=== PATIENT | female | born 1965 | race Caucasian/White ===

== ENCOUNTER 2016-08-31 10:40 | Emergency (ER) | payer OTHER ==
[~2016-08-31] VITALS: Ht 154.9 cm; Wt 60.0 kg
[2016-08-31 10:42] VITALS: BP 80/46; PULSE 84; RESP 16; TEMP 98.2; O2SAT 98
[2016-08-31 11:51] VITALS: BP 132/76; PULSE 69; RESP 18; TEMP 98.5; O2SAT 95
[2016-08-31 11:52] LABS: AUTOMATED NEUTROPHIL # 3.9 TH/MM3 (1.8-7.7); BASOPHIL # 0.1 TH/MM3 (0-0.2); EOSINOPHIL # 0.1 TH/MM3 (0-0.4); EOSINOPHIL % 1.3 % (0.0-4.0); HEMATOCRIT 45.2 % (35.0-46.0); HEMO FLAGS DIFF FINAL; LYMPH % 29.1 % (9.0-44.0); LYMPHOCYTE # 1.9 TH/MM3 (1.0-4.8); MEAN CELL VOLUME 95.5 FL (80.0-100.0); MEAN CORPUSCULAR HEMOGLOBIN 32.5 PG (27.0-34.0); MONO % 7.4 % (0.0-8.0); NEUT % 61.2 % (16.0-70.0); PLATELET COUNT 235 TH/MM3 (150-450); RED BLOOD COUNT 4.73 MIL/MM3 (4.00-5.30); RED CELL DISTRIBUTION WIDTH 14.3 % (11.6-17.2); WHITE BLOOD COUNT 6.4 TH/MM3 (4.0-11.0)
[2016-08-31 11:54] VITALS: BP_SYST 105; BP_SYST 75; BP_SYST 78; BP_DIAS 50; BP_DIAS 51; BP_DIAS 58; PULSE 68
[2016-08-31] MEDS ORDERED: SODIUM CHLOR 0.9% 1000 ML INJ 1,000 ML IV ONE ×2 (12:00)
--- NOTE | 2016-08-31 12:08 | PD ---
HPI Chief Complaint: Medical Clearance Time Seen by Provider: 11:31 Travel History International Travel<30 days: No Contact w/Intl Traveler<30days: No Traveled to known affect area: No History of Present Illness HPI Patient is a 51-year-old female who presents to emergency room with multiple complaints. Reports that for the past 2 days, she has had a headache, reports that she feels a pressure to her head as well as noticed a bump under her right eye. Reports that she feels dehydrated as she only had 2 bottle of water yesterday. Patient reports that her head hurts her and she feels sleepy and exhausted. Denies any fevers or chills, denies any vision changes, denies any nausea or vomiting. Patient denies any chest pain or shortness breath at this time. Patient denies any abdominal pain, no trauma to the head or neck Patient also reports that she is homeless, reports that she needs a place to stay today as thing at the [facility] but there was no availability. [facility] Past Medical History Cardiovascular Problems: Yes ?: Not Past Surgical History Hysterectomy: Yes Social History Alcohol Use: No Tobacco Use: No Substance Use: No Allergies-Medications (Allergen,Severity, Reaction): Coded Allergies: Haldol (Verified Allergy, Intermediate, 08/31/16) Oxycodone (Verified Allergy, Intermediate, 08/31/16) Review of Systems General / Constitutional: No: Fever Eyes: No: Visual changes HENT: Positive: Lightheadedness, No: Headaches Cardiovascular: No: Chest Pain or Discomfort Respiratory: No: Shortness of Breath Gastrointestinal: No: Abdominal Pain Genitourinary: No: Dysuria Musculoskeletal: No: Pain Skin: No Rash Neurologic: Positive: Headache, No: Weakness Psychiatric: No: Depression Endocrine: No: Polydipsia Hematologic/Lymphatic: No: Easy Bruising Physical Exam Narrative GENERAL: No acute distress, nontoxic SKIN: Focused skin assessment warm/dry. HEAD: Atraumatic. Normocephalic. EYES: Pupils equal and round. No scleral icterus. No injection or drainage. ENT: No nasal bleeding or discharge. Mucous membranes pink and moist. NECK: Trachea midline. No JVD. CARDIOVASCULAR: Regular rate and rhythm. No murmur appreciated. RESPIRATORY: No accessory muscle use. Clear to auscultation. Breath sounds equal bilaterally. GASTROINTESTINAL: Abdomen soft, non-tender, nondistended. Hepatic and splenic margins not palpable. MUSCULOSKELETAL: No obvious deformities. No clubbing. No cyanosis. No edema. NEUROLOGICAL: Awake and alert. No obvious cranial nerve deficits. Motor grossly within normal limits. Normal speech. Cranial nerves 2- 12 grossly intact with no neurological deficits PSYCHIATRIC: Appropriate mood and affect; insight and judgment normal. Data Data Last Documented VS Vital Signs Date Time Temp Pulse Resp B/P Pulse Ox O2 Delivery O2 Flow Rate FiO2 08/31/16 13:59 59 18 92/62 99 Room Air 08/31/16 11:51 98.5 Orders Complete Blood Count With Diff (08/31/16 11:05) Basic Metabolic Panel (Bmp) (08/31/16 11:05) Urinalysis - C+S If Indicated (08/31/16 11:05) Drug Screen, Random Urine (08/31/16 11:32) Ed Urine Pregnancytest Poc (08/31/16 11:32) Creatine Kinase (Cpk) (08/31/16 11:32) Sodium Chlor 0.9% 1000 Ml Inj (Ns 1000 M (08/31/16 12:00) Sodium Chlor 0.9% 1000 Ml Inj (Ns 1000 M (08/31/16 12:00) Chest, Single Ap (08/31/16 11:48) Ct Brain W/O Iv Contrast(Rout) (08/31/16 12:22) Electrocardiogram (08/31/16 ) Cta Thor Abd Aorta W Iv C W3d (08/31/16 13:33) Iohexol 350 Inj (Omnipaque 350 Inj) (08/31/16 16:09) Labs Laboratory Tests Test 08/31/16 08/31/16 08/31/16 11:36 11:40 11:46 White Blood Count 6.4 TH/MM3 Red Blood Count 4.73 MIL/MM3 Hemoglobin 15.4 GM/DL Hematocrit 45.2 % Mean Corpuscular Volume 95.5 FL Mean Corpuscular Hemoglobin 32.5 PG Mean Corpuscular Hemoglobin 34.0 % Concent Red Cell Distribution Width 14.3 % Platelet Count 235 TH/MM3 Mean Platelet Volume 8.7 FL Neutrophils (%) (Auto) 61.2 % Lymphocytes (%) (Auto) 29.1 % Monocytes (%) (Auto) 7.4 % Eosinophils (%) (Auto) 1.3 % Basophils (%) (Auto) 1.0 % Neutrophils # (Auto) 3.9 TH/MM3 Lymphocytes # (Auto) 1.9 TH/MM3 Monocytes # (Auto) 0.5 TH/MM3 Eosinophils # (Auto) 0.1 TH/MM3 Basophils # (Auto) 0.1 TH/MM3 CBC Comment DIFF FINAL Differential Comment Urine Color YELLOW Urine Turbidity CLEAR Urine pH 6.5 Urine Specific [place] 1.022 Urine Protein NEG mg/dL Urine Glucose (UA) NEG mg/dL Urine Ketones NEG mg/dL Urine Occult Blood NEG Urine Nitrite NEG Urine Bilirubin NEG Urine Urobilinogen 4.0 MG/DL Urine Leukocyte Esterase NEG Urine RBC LESS THAN 1 /hpf Urine WBC 1 /hpf Urine Squamous Epithelial <1 /hpf Cells Urine Hyaline Casts 1 /lpf Urine Mucus FEW /lpf Microscopic Urinalysis Comment CULT NOT INDICATED Urine Opiates Screen NEG Urine Barbiturates Screen NEG Urine Amphetamines Screen NEG Urine Benzodiazepines Screen NEG Urine Cocaine Screen NEG Urine Cannabinoids Screen POS Sodium Level 144 MEQ/L Potassium Level 4.1 MEQ/L Chloride Level 112 MEQ/L Carbon Dioxide Level 26.5 MEQ/L Anion Gap 6 MEQ/L Blood Urea Nitrogen 12 MG/DL Creatinine 0.89 MG/DL Estimat Glomerular Filtration 67 ML/MIN Rate Random Glucose 90 MG/DL Calcium Level 9.1 MG/DL Total Creatine Kinase 61 U/L [facility] Medical Decision Making Medical Screen Exam Complete: Yes Emergency Medical Condition: Yes Interpretation(s) EKG at 1231: NSR at 60bpm, qt/qtc: 431/433, t wave inversion II, III, V5-V6 Vital Signs Date Time Temp Pulse Resp B/P Pulse Ox O2 Delivery O2 Flow Rate FiO2 08/31/16 11:54 68 75/50 105/51 78/58 08/31/16 11:51 68 18 08/31/16 11:51 98.5 69 18 132/76 95 Room Air 08/31/16 10:42 98.2 84 16 80/46 98 Differential Diagnosis Differential includes migraine headache, cephalgia, dehydration, electrolyte abnormality Narrative Course Patient is a 51-year-old female who presents to emergency with complaints of headache. Patient reports that she has increased pressure to the back of her head and eyes the past 2 days, patient with no fevers or chills, no trauma. Patient with normal neurological exam with no neurological deficits. Reports that she has had decreased oral intake over the past few days, plan to obtain CT of the head, will obtain blood work, will give IV fluids as patient does appear dehydrated. Laboratory Tests Test 08/31/16 08/31/16 08/31/16 11:36 11:40 11:46 White Blood Count 6.4 TH/MM3 (4.0-11.0) Red Blood Count 4.73 MIL/MM3 (4.00-5.30) Hemoglobin 15.4 GM/DL (11.6-15.3) Hematocrit 45.2 % (35.0-46.0) Mean Corpuscular Volume 95.5 FL (80.0-100.0) Mean Corpuscular Hemoglobin 32.5 PG (27.0-34.0) Mean Corpuscular Hemoglobin 34.0 % Concent (32.0-36.0) Red Cell Distribution Width 14.3 % (11.6-17.2) Platelet Count 235 TH/MM3 (150-450) Mean Platelet Volume 8.7 FL (7.0-11.0) Neutrophils (%) (Auto) 61.2 % (16.0-70.0) Lymphocytes (%) (Auto) 29.1 % (9.0-44.0) Monocytes (%) (Auto) 7.4 % (0.0-8.0) Eosinophils (%) (Auto) 1.3 % (0.0-4.0) Basophils (%) (Auto) 1.0 % (0.0-2.0) Neutrophils # (Auto) 3.9 TH/MM3 (1.8-7.7) Lymphocytes # (Auto) 1.9 TH/MM3 (1.0-4.8) Monocytes # (Auto) 0.5 TH/MM3 (0-0.9) Eosinophils # (Auto) 0.1 TH/MM3 (0-0.4) Basophils # (Auto) 0.1 TH/MM3 (0-0.2) CBC Comment DIFF FINAL Differential Comment Urine Color YELLOW (YELLW/STRAW) Urine Turbidity CLEAR (CLEAR) Urine pH 6.5 (5.0-8.5) Urine Specific [place] 1.022 (1.002-1.035) Urine Protein NEG mg/dL (NEG-TRACE) Urine Glucose (UA) NEG mg/dL (NEG) Urine Ketones NEG mg/dL (NEG) Urine Occult Blood NEG (NEG) Urine Nitrite NEG (NEG) Urine Bilirubin NEG (NEG) Urine Urobilinogen 4.0 MG/DL (LESS THAN 2.0) Urine Leukocyte Esterase NEG (NEG) Urine RBC LESS THAN 1 /hpf (0-3) Urine WBC 1 /hpf (0-5) Urine Squamous Epithelial <1 /hpf (0-5) Cells Urine Hyaline Casts 1 /lpf (RARE) Urine Mucus FEW /lpf (OCC) Microscopic Urinalysis Comment CULT NOT INDICATED Sodium Level 144 MEQ/L (136-145) Potassium Level 4.1 MEQ/L (3.5-5.1) Chloride Level 112 MEQ/L (98-107) Carbon Dioxide Level 26.5 MEQ/L (21.0-32.0) Anion Gap 6 MEQ/L (5-15) Blood Urea Nitrogen 12 MG/DL (7-18) Creatinine 0.89 MG/DL (0.50-1.00) Estimat Glomerular Filtration 67 ML/MIN (>89) Rate Random Glucose 90 MG/DL (74-106) Calcium Level 9.1 MG/DL (8.5-10.1) Last Impressions Head CT 08/31/16 1222 Signed Impressions: Service Date/Time: Wednesday, August 31, 2016 12:44 - CONCLUSION: No acute intracranial disease. Elpidio Sandhu MD Chest X-Ray 08/31/16 1148 Signed Impressions: Service Date/Time: Wednesday, August 31, 2016 11:49 - CONCLUSION: No acute disease. Elpidio Sandhu MD CTA ordered to rule out aortic dissection as patient c/o of a headedness and dizziness and patient had abnormal vital signs. Patient now requesting to leave AGAINST MEDICAL ADVICE. AMA: The risks of leaving against medical advice without further evaluation treatment were discussed with the patient. These risks include cardiac dysfunction, cardiac dysrhythmia, possible heart attack, possible stroke or . The patient indicated understanding of these risks and appeared to have the capacity to make this decision. Vital Signs Date Time Temp Pulse Resp B/P Pulse Ox O2 Delivery O2 Flow Rate FiO2 08/31/16 13:59 59 18 92/62 99 Room Air 08/31/16 12:34 57 18 123/68 96 Room Air 08/31/16 11:54 68 75/50 105/51 78/58 08/31/16 11:51 68 18 08/31/16 11:51 98.5 69 18 132/76 95 Room Air 08/31/16 10:42 98.2 84 16 80/46 98 Patient understands that she could return to the emergency with any time for reevaluation of her symptoms. Patient left prior to CTA being resulted. She understands that she may return to ER at any time should she require re-evaluation Diagnosis Primary Impression: AMA Additional Impressions: Headache Qualified Code: R51 - Nonintractable headache, unspecified chronicity pattern , unspecified headache type Dizziness Patient Instructions: General Instructions Additional Instructions: You may return to the emergency with any time should you consent to further medical treatment Please stop with your primary care doctor as soon as possible You may return to the emergency room any time for reevaluation of your symptoms Disposition: 07 AGAINST MEDICAL ADVICE Condition: Serious Zoë Flood DO Aug 31, 2016 12:08
[2016-08-31 12:16] LABS: BLOOD, URINE NEG (NEG); COMMENT (UR) CULT NOT INDICATED; CULTURE IF INDICATED CULT NOT INDICATED; GLUCOSE,URINE NEG (NEG); HYALINE CAST, URINE 1 /lpf (RARE); KETONE, URINE NEG (NEG); MUCUS URINE FEW /lpf (OCC); NITRITE,URINE NEG (NEG); PH, URINE 6.5 (5.0-8.5); SQUAMOUS EPITHELIAL CELL URINE <1 /hpf (0-5); URINE COLOR YELLOW (YELLW/STRAW)
--- NOTE | 2016-08-31 12:29 | RADRPT ---
EXAM DATE/TIME: 08/31/2016 11:49 [facility] COMPARISON: No previous studies available for comparison. INDICATIONS : Shortness of breath, dizziness, and weakness. MEDICAL HISTORY : None. SURGICAL HISTORY : Heart stent. ENCOUNTER: Initial ACUITY: 1 day PAIN SCORE: 0/10 LOCATION: Bilateral chest FINDINGS: A single view of the chest demonstrates the lungs to be symmetrically aerated without evidence of mas s, infiltrate or effusion. The cardiomediastinal contours are unremarkable. Osseous structures are intact. CONCLUSION: No acute disease. Elpidio Sandhu MD on August 31, 2016 at 12:27 Board Certified Radiologist. This report was verified electronically.
[2016-08-31 12:34] VITALS: BP 123/68; PULSE 57; RESP 18; O2SAT 96
[2016-08-31 12:41] LABS: BICARBONATE 26.5 MEQ/L (21.0-32.0); POTASSIUM 4.1 MEQ/L (3.5-5.1)
--- NOTE | 2016-08-31 13:03 | RADRPT ---
EXAM DATE/TIME: 08/31/2016 12:44 [facility] COMPARISON: No previous studies available for comparison. INDICATIONS : Cephalgia. RADIATION DOSE: 56.35 CTDIvol (mGy) MEDICAL HISTORY : Cardiovascular disease. SURGICAL HISTORY : None. ENCOUNTER: Initial ACUITY: 1 day PAIN SCALE: 5/10 LOCATION: Bilateral cranial TECHNIQUE: Multiple contiguous axial images were obtained of the head. Using automated exposure control and adj ustment of the mA and/or kV according to patient size, radiation dose was kept as low as reasonably a chievable to obtain optimal diagnostic quality images. DICOM format image data is available electro nically for review and comparison. FINDINGS: CEREBRUM: The ventricles are normal for age. No evidence of midline shift, mass lesion, hemorrhage or acute in farction. No extra-axial fluid collections are seen. POSTERIOR FOSSA: The cerebellum and brainstem are intact. The 4th ventricle is midline. The cerebellopontine angle i s unremarkable. EXTRACRANIAL: The visualized portion of the orbits is intact. SKULL: The calvaria is intact. No evidence of skull fracture. CONCLUSION: No acute intracranial disease. Elpidio Sandhu MD on August 31, 2016 at 13:01 Board Certified Radiologist. This report was verified electronically.
[2016-08-31 13:59] VITALS: BP 92/62; PULSE 59; RESP 18; O2SAT 99
[2016-08-31] MEDS ORDERED: IOHEXOL 350 MG/ML 10 ML VIAL (for RAD DIAG) IV ONE (16:09)
--- NOTE | 2016-08-31 16:30 | RADRPT ---
EXAM DATE/TIME: 08/31/2016 15:37 [facility] COMPARISON: No previous studies available for comparison. INDICATIONS : Evaluate for aortic dissection. IV CONTRAST: 75 cc Omnipaque 350 (iohexol) IV RADIATION DOSE: 25.40 CTDIvol (mGy) MEDICAL HISTORY : Cardiovascular disease. SURGICAL HISTORY : Hysterectomy. ENCOUNTER: Initial ACUITY: 1 day PAIN SCALE: 2/10 LOCATION: Bilateral cranial TECHNIQUE: Volumetric scanning was performed using a multi-row detector CT scanner. The data was post processed with a variety of visualization algorithms including full volume maximum intensity projection, multi -planar sliding thin slab reformation, curved planar reformation, and surface rendering techniques. Using automated exposure control and adjustment of the mA and/or kV according to patient size, radiat ion dose was kept as low as reasonably achievable to obtain optimal diagnostic quality images. DICOM format image data is available electronically for review and comparison. FINDINGS: LUNGS: There is no consolidation or pneumothorax. No concerning pulmonary nodule is visualized. No pleural fluid is present. 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 MEDIASTINUM: No abnormally enlarged lymph nodes by CT criteria. No axillary or hilar abnormalities are identified. ABDOMEN: The liver and spleen are free of focal defects. The gallbladder and pancreas demonstrate no abnormali ty. The adrenal glands are normal. The kidneys demonstrate no evidence of solid renal mass or hydrone phrosis. No free fluid or abdominal masses are identified. No para-aortic adenopathy is seen. PELVIS: No evidence of free fluid or pelvic mass. No abnormally enlarged inguinal or retroperitoneal lymph no roxy are present. The bladder is unremarkable. THORACIC AORTA: The thoracic aortic root is normal with no evidence of aneurysm or dissection. Short segment occlusio n of the left subclavian artery. Mild narrowing of the origin of the left common carotid artery. ABDOMINAL AORTA: The aorta is normal in caliber without aneurysm or dissection. The renal arteries are patent bilater ally. The proximal celiac and superior mesenteric arteries are patent and normal in diameter. PELVIC VESSELS: The left internal iliac and external iliac vessels are patent without aneurysm or stenosis. There is occlusion of the right common iliac artery with reconstitution of the distal right common iliac arter y right before branching. CONCLUSION: 1. 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 2. No aneurysm or dissection. 3. There is small segment occlusion left subclavian artery. 4. Mild narrowing at the origin of the left common carotid artery. Elpidio F. Tocci, MD on August 31, 2016 at 16:23 Board Certified Radiologist. This report was verified electronically.
[2016-08-31 16:31] LABS: AMPHETAMINE, URINE NEG (NEG); BARBITURATES, URINE NEG (NEG); COCAINE, URINE NEG (NEG)
--- NOTE | 2016-08-31 17:33 | EKG ---
Date Performed: 08/31/2016 Time Performed: 12:31:08 PTAGE: 51 years EKG: Sinus rhythm WITH OCCASIONAL VENTRICULAR PREMATURE COMPLEXES POSSIBLE RIGHT VENTRICULAR CONDUCTION DELAY MODERATE T-WAVE ABNORMALITY, CONSIDER INFERIOR ISCHEMIA ABNORMAL ECG NO PREVIOUS TRACING DOCTOR: Angelito Nelson Interpretating Date/Time 08/31/2016 17:33:07
== END 2016-08-31 16:56 | disposition left against medical advice (07) ==
LOC: NEPD 10:40
DX: R51 Headache (principal); R42 Dizziness and giddiness
CPT/HCPCS: 70450; 71010; 71275; 74174; 80048; 80307; 81001; 82550; 84703; 85025; 93005; 99285; J7030; Q9967

== ENCOUNTER 2016-11-15 13:12 | Inpatient (IN) | payer MEDICAID, OTHER ==
[~2016-11-15] VITALS: Ht 160 cm; Wt 51.2 kg
[2016-11-15 13:25] VITALS: BP 111/58; PULSE 78; RESP 16; TEMP 98.7; O2SAT 99
[2016-11-15 13:49] LABS: AUTOMATED NEUTROPHIL # 4.9 TH/MM3 (1.8-7.7); BASOPHIL # 0.1 TH/MM3 (0-0.2); BASOPHIL % 1.1 % (0.0-2.0); EOSINOPHIL # 0.1 TH/MM3 (0-0.4); EOSINOPHIL % 1.8 % (0.0-4.0); HEMATOCRIT 43.4 % (35.0-46.0); HEMO FLAGS DIFF FINAL; LYMPH % 25.9 % (9.0-44.0); MEAN CELL VOLUME 97.5 FL (80.0-100.0); MEAN CORPUSCULAR HEMOGLOBIN 32.7 PG (27.0-34.0); MEAN CORPUSCULAR HGB CONC 33.6 % (32.0-36.0); MONO % 6.8 % (0.0-8.0); NEUT % 64.4 % (16.0-70.0); PLATELET COUNT 245 TH/MM3 (150-450); RED BLOOD COUNT 4.45 MIL/MM3 (4.00-5.30); RED CELL DISTRIBUTION WIDTH 14.2 % (11.6-17.2); WHITE BLOOD COUNT 7.7 TH/MM3 (4.0-11.0)
[2016-11-15 14:10] LABS: ALT (GPT) 18 U/L (10-53); ANION GAP 5 MEQ/L (5-15); AST (GOT) 11 U/L (15-37); BICARBONATE 23.5 MEQ/L (21.0-32.0); BLOOD UREA NITROGEN 13 MG/DL (7-18); CHLORIDE 110 MEQ/L (98-107); GLOMERULAR FILTRATION RATE 77 ML/MIN (>89); POTASSIUM 4.3 MEQ/L (3.5-5.1); SODIUM (NA) 138 MEQ/L (136-145)
[2016-11-15 14:12] LABS: ALKALINE PHOSPHATASE 79 U/L (45-117); TOTAL BILIRUBIN ADULT 0.2 MG/DL (0.2-1.0)
[2016-11-15 14:18] LABS: ALCOHOL LESS THAN 3 MG/DL (0-5)
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
[2016-11-15 15:16] VITALS: BP 91/51; PULSE 55; RESP 16; O2SAT 100
[2016-11-15 17:58] VITALS: BP 76/58; PULSE 60; RESP 16; O2SAT 100
[2016-11-15 22:07] VITALS: BP 130/62; PULSE 60; RESP 18; O2SAT 96
[2016-11-16] MEDS ORDERED: OLANZapine IM 10 MG VIAL IM ONE (00:45)
[2016-11-16 02:01] VITALS: BP 121/67; PULSE 56; RESP 18; O2SAT 96
[2016-11-16] MEDS ORDERED: diphenhydrAMINE HCL 50 MG/ML VIAL IM ONE (06:00)
[2016-11-16] MEDS ORDERED: LORazepam 2 MG/ML VIAL IM ONE (06:00)
[2016-11-16 06:12] VITALS: BP 92/51; PULSE 60; RESP 17; O2SAT 98
[2016-11-16] MEDS ORDERED: ACETAMINOPHEN 325 MG TAB PO ONE (09:00)
[2016-11-16 10:59] VITALS: BP 121/56; PULSE 60; RESP 17; TEMP 98.4; O2SAT 96
[2016-11-16] MEDS ORDERED: LORazepam 2 MG/ML VIAL IM PRN (12:00)
[2016-11-16] MEDS ORDERED: MAGNESIUM HYDROXIDE SUSP 30 ML CUP PO PRN (12:00)
[2016-11-16] MEDS ORDERED: ALUMINUM/MAGNESIUM/SIMETH 30 ML CUP PO PRN (12:00)
--- NOTE | 2016-11-16 12:05 | HHI.HP ---
Provisional Diagnosis Admission Date [place]. Schizophrenia, chronic paranoid type Certification of Person's Competence To Provide Express and Informed Consent I have personally examined Olu Bashir , a person being served at [facility] on, Nov 16, 2016 12:03. Express and informed consent means consent voluntarily given in writing, by a competent person, after sufficient explanation and disclosure of the subject matter involved to enable the person to make a knowing and willful decision without any element of force, fraud, deceit, duress, or other form of constraint or coercion. This person is 18 years of age or older, is not now known to be incompetent to consent to treatment with a guardian advocate, and does not have a health care surrogate or proxy currently making medical treatment decisions. I have found this person to be one of the following: [x] Competent to provide express and informed consent, as defined above, for voluntary admission to this facility and is competent to provide express and informed consent for treatment. He/she has the consistent capacity to make well reasoned, willful, and knowing decisions concerning his or her medical or mental health treatment. The person fully and consistently understands the purpose of the admission for examination/placement and is fully capable of personally exercising all rights assured [place] Incompetent to provide express and informed consent to voluntary admission, and this is incompetent to provide express and informed consent to treatment. The person must be transferred to involuntary status and a petition for a guardian advocate filed with the Circuit Court. [] Refusing to provide express and informed consent to voluntary admission but is competent to provide express and informed consent for treatment. The person must be discharged or transferred to involuntary status. Form shall be completed within 24 hours of a person's arrival at the receiving facility and filed in the clinical record of each person: 1. Admitted on a voluntary basis 2. Permitted to provide express and informed consent to his/her own treatment 3. Allowed to transfer from involuntary to voluntary status 4. Prior to permitting a person to consent to his or her own treatment after having been previously found incompetent to consent to treatment. History of Present Illness Capacity: Has Capacity HPI 51-year-old female brought in under a Castañeda act for reportedly taking her clothes off in a [employer] restaurant. When she was questioned by police, she became highly agitated and combative. According to the police shift commander she was making a disturbance and demonstrating aggressiveness. Patient is an uncooperative historian. She does allow that she has a history of schizophrenia and that she takes 6 mg of Risperdal per day. She also reports taking Depakote. She has thrown her food and cups in her room and blames the staff, stating staff members did this. She is feeling persecuted by the healthcare professionals attempting to care for her. She wants to ask this physician of series of questions but does not wish to answer questions. She has been noncompliant with her medicines for weeks. She does not have a positive alcohol or drug screen at this time. However she is verbally threatening to the emergency department staff. She states we are plotting to harm her. Review of Systems Except as stated in HPI: all other systems reviewed are Neg Past Psych History Psychological trauma history Denied Violence risk - others (6 mos) High Violence risk - self (6 mos) Moderate to high Substance Abuse History Drugs/Alcohol past 12 months Denied Past Family Social History Coded Allergies: haloperidol (Unverified Allergy, Intermediate, 10/08/16) oxycodone (Unverified Allergy, Intermediate, 10/08/16) Unable to Obtain Active Prescriptions or Reported Meds Current Medications Medications (Trade) Dose Ordered Sig/Lam Route Start Time Stop Time Status Last Admin (Ativan) 1 mg Q6H PRN PO 11/16/16 12:00 UNV (Ativan Inj) 1 mg Q6H PRN IM 11/16/16 12:00 UNV (Tylenol) 650 mg Q4H PRN PO 11/16/16 12:00 UNV (Milk Of Magnesia Liq) 30 ml DAILY PRN PO 11/16/16 12:00 UNV (Mag-Al Plus Susp Liq) 30 ml Q6H PRN PO 11/16/16 12:00 UNV (Desyrel) 50 mg HS PRN PO 11/16/16 12:00 UNV (Abilify) 2 mg HS PO 11/16/16 21:00 UNV Family History Unknown Social History Patient is currently homeless. She denies family support. She is not employed. She denies alcohol and substance abuse. Patient's Strengths (min. 2) Verbal and has access to healthcare. Physical Exam GENERAL: SKIN: Warm and dry. HEAD: Normocephalic. EYES: No scleral icterus. No injection or drainage. NECK: Supple, trachea midline. No JVD or lymphadenopathy. CARDIOVASCULAR: Regular rate and rhythm without murmurs, gallops, or rubs. RESPIRATORY: Breath sounds equal bilaterally. No accessory muscle use. GASTROINTESTINAL: Abdomen soft, non-tender, nondistended. MUSCULOSKELETAL: No cyanosis, or edema. BACK: Nontender without obvious deformity. No CVA tenderness. Vital Signs Vital Signs Date Time Temp Pulse Resp B/P (MAP) Pulse Ox O2 Delivery O2 Flow Rate FiO2 11/16/16 10:59 98.4 60 17 121/56 (77) 96 11/16/16 02:01 Room Air Lab Results Test 11/15/16 13:35 White Blood Count 7.7 TH/MM3 Red Blood Count 4.45 MIL/MM3 Hemoglobin 14.6 GM/DL Hematocrit 43.4 % Mean Corpuscular Volume 97.5 FL Mean Corpuscular Hemoglobin 32.7 PG Mean Corpuscular Hemoglobin Concent 33.6 % Red Cell Distribution Width 14.2 % Platelet Count 245 TH/MM3 Mean Platelet Volume 8.2 FL Neutrophils (%) (Auto) 64.4 % Lymphocytes (%) (Auto) 25.9 % Monocytes (%) (Auto) 6.8 % Eosinophils (%) (Auto) 1.8 % Basophils (%) (Auto) 1.1 % Neutrophils # (Auto) 4.9 TH/MM3 Lymphocytes # (Auto) 2.0 TH/MM3 Monocytes # (Auto) 0.5 TH/MM3 Eosinophils # (Auto) 0.1 TH/MM3 Basophils # (Auto) 0.1 TH/MM3 CBC Comment DIFF FINAL Differential Comment Blood Urea Nitrogen 13 MG/DL Creatinine 0.79 MG/DL Random Glucose 85 MG/DL Total Protein 7.5 GM/DL Albumin 3.8 GM/DL Calcium Level 9.0 MG/DL Alkaline Phosphatase 79 U/L Aspartate Amino Transf (AST/SGOT) 11 U/L Alanine Aminotransferase (ALT/SGPT) 18 U/L Total Bilirubin 0.2 MG/DL Sodium Level 138 MEQ/L Potassium Level 4.3 MEQ/L Chloride Level 110 MEQ/L Carbon Dioxide Level 23.5 MEQ/L Anion Gap 5 MEQ/L Estimat Glomerular Filtration Rate 77 ML/MIN Ethyl Alcohol Level LESS THAN 3 MG/DL Mental Status Examination Speech: Rapid Orientation: x3 Memory: Unremarkable Thought Process: Loose Association Thought Content: Bizarre thinking, Paranoid Hallucination Type: None Attention and Concentration: Abnormal Suicidal Ideation: No Previous Suicide Attempts: No Homicidal Ideation: No Previous Homicide Attempts: No Insight: Poor Judgment: Unrealistic Affect: Irritable, Oppositional Affect if Inappropriate: Labile Mood: Oppositional, Irritable Motor Activity: Normal gait Assessment & Plan Problem List: (1) Schizophrenia, paranoid, chronic ICD Codes: F20.0 - Paranoid schizophrenia Assessment & Plan Estimated LOS: days this is a 51-year-old female with self reported history of schizophrenia, noncompliant with medicines, Castañeda acted for taking her clothes off in public and agitated/aggressive behavior. Patient remains agitated, throwing things in her room, blaming staff, alleging she is being persecuted by staff and she is uncooperative. For this reason she is being admitted for evaluation and treatment. This physician has restarted the patient on Risperdal 3 mg in the emergency room. I have also ordered a CBC and comprehensive metabolic profile to determine if any infectious process or metabolic process is causing or contributing to her psychosis and agitation. We will also check her thyroid stimulating hormone, vitamin B-12 level and vitamin D level to determine if deficiencies in these areas are causing or contributing to her agitation and psychosis. We will obtain a EKG to assess her cardiac conduction status due to the possibility of it being altered by her psychotropic medicines. This physician spoke with the patient's nurse regarding her recent agitation and will ask case management to become involved for further information gathering and dispositional planning. Frank Arauz MD Nov 16, 2016 12:05
[2016-11-16] MEDS: risperiDONE 3 MG TAB PO SCH (12:50)
[2016-11-16] MEDS: LORazepam 1 MG TAB PO PRN ×2 (12:51→20:28)
[2016-11-16 13:06] VITALS: BP 126/74; PULSE 63; RESP 18; TEMP 98.2; O2SAT 98
[2016-11-16] MEDS ORDERED: ARIPiprazole 2 MG TAB PO SCH (21:00)
[2016-11-17 05:48] VITALS: BP 151/62; PULSE 76; RESP 16; TEMP 98.4; O2SAT 96
[2016-11-17] MEDS: risperiDONE 3 MG TAB PO SCH (08:00)
[2016-11-17] MEDS: ACETAMINOPHEN 325 MG TAB PO PRN (08:01)
[2016-11-17] MEDS: LORazepam 1 MG TAB PO PRN ×3 (08:57→22:32)
[2016-11-17 10:25] LABS: BASOPHIL # 0.1 TH/MM3 (0-0.2); BASOPHIL % 2.2 % (0.0-2.0); EOSINOPHIL # 0.1 TH/MM3 (0-0.4); EOSINOPHIL % 2.1 % (0.0-4.0); HEMATOCRIT 43.9 % (35.0-46.0); HEMO FLAGS DIFF FINAL; LYMPH % 25.1 % (9.0-44.0); LYMPHOCYTE # 1.6 TH/MM3 (1.0-4.8); MEAN CELL VOLUME 96.4 FL (80.0-100.0); MEAN CORPUSCULAR HEMOGLOBIN 32.5 PG (27.0-34.0); MEAN CORPUSCULAR HGB CONC 33.7 % (32.0-36.0); MONO % 5.7 % (0.0-8.0); NEUT % 64.9 % (16.0-70.0); PLATELET COUNT 214 TH/MM3 (150-450); RED BLOOD COUNT 4.55 MIL/MM3 (4.00-5.30); RED CELL DISTRIBUTION WIDTH 14.2 % (11.6-17.2); WHITE BLOOD COUNT 6.2 TH/MM3 (4.0-11.0)
[2016-11-17 10:46] LABS: ANION GAP 8 MEQ/L (5-15); AST (GOT) 7 U/L (15-37); BICARBONATE 24.5 MEQ/L (21.0-32.0); BLOOD UREA NITROGEN 15 MG/DL (7-18); CHLORIDE 108 MEQ/L (98-107); GLOMERULAR FILTRATION RATE 98 ML/MIN (>89); POTASSIUM 4.6 MEQ/L (3.5-5.1); SODIUM (NA) 140 MEQ/L (136-145)
[2016-11-17 11:12] LABS: HEMOGLOBIN A1a 1.3 %; HEMOGLOBIN A1b 0.9 %; HEMOGLOBIN Ao 84.2 %; HEMOGLOBIN F 1.1 %; HEMOGLOBIN LA1C 2.3 %; HEMOGLOBIN P3 3.8 %
[2016-11-17 11:14] LABS: ALKALINE PHOSPHATASE 76 U/L (45-117); ALT (GPT) 13 U/L (10-53); HDL CHOLESTEROL 55.4 MG/DL (40.0-60.0); LDL CHOLESTEROL 101 MG/DL (0-99); TOTAL BILIRUBIN ADULT 0.2 MG/DL (0.2-1.0)
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
[2016-11-17 17:54] VITALS: BP 133/75; PULSE 83; RESP 16; TEMP 98.7; O2SAT 96
[2016-11-17] MEDS: traZODone HCL 50 MG TAB PO PRN (21:22)
[2016-11-18 06:01] VITALS: BP 99/62; PULSE 80; RESP 16; TEMP 97.6; O2SAT 97
[2016-11-18] MEDS: risperiDONE 3 MG TAB PO SCH (08:59)
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
[2016-11-18] MEDS: DIVALPROEX SODIUM E.R. 500 MG TAB PO SCH (10:00)
[2016-11-18 16:50] VITALS: BP 97/68; PULSE 62; RESP 18; TEMP 97.5; O2SAT 100
[2016-11-18] MEDS ORDERED: risperiDONE 1 MG TAB PO SCH (21:00)
[2016-11-18] MEDS: ACETAMINOPHEN 325 MG TAB PO PRN (21:17)
[2016-11-18] MEDS: LORazepam 1 MG TAB PO PRN (21:17)
[2016-11-18] MEDS: traZODone HCL 50 MG TAB PO PRN (21:17)
[2016-11-19 06:10] VITALS: BP 114/57; PULSE 64; RESP 18; TEMP 97.8; O2SAT 94
[2016-11-19] MEDS: risperiDONE 3 MG TAB PO SCH (08:51)
[2016-11-19] MEDS: DIVALPROEX SODIUM E.R. 500 MG TAB PO SCH (08:51)
--- NOTE | 2016-11-19 11:21 | HHI.PYPN ---
Subjective Remarks Patient seen and examined with counselor. Chart reviewed. Case discussed in treatment team. On my examination today, the patient remains pleasantly delusional. She says that she sometimes feels that she is not from earth but is the creator of Earth. She also says that she sometimes interacts with "little green men." She denies any SI or HI. She denies side effects from medications and is agreeable to further titration of her Risperdal. No physical complaints. Hopeful for discharge within the next few days. Review of Systems ROS Limitations: Psychotic, Poor Historian Except as stated in HPI: all other systems reviewed are Neg Objective Alert: Yes [place]: Person, Place, Date Mood: Calm Affect: Appropriate (remains appropriate) Memory Intact: Comment (fair) Hallucinations: Other (denies AVH) Delusions: Yes Delusion Type: Paranoid (bizarre) Suicidal: Ideation (no SI) Homicidal: Ideation (no HI) Insight/Judgment Poor Remarks Thought process linear within delusional system. Grooming and hygiene fair, and there is no evidence of any self-care deficit as a consequence of the patient's psychosis. Speech within normal limits for rate, tone and volume. Labs Labs reviewed. Vitals/IOs Vital Signs Date Time Temp Pulse Resp B/P (MAP) Pulse Ox O2 Delivery O2 Flow Rate FiO2 11/19/16 06:10 97.8 64 18 114/57 (76) 94 11/16/16 02:01 Room Air Assessment & Plan Problem List: (1) Schizophrenia, paranoid, chronic ICD Codes: F20.0 - Paranoid schizophrenia Assessment & Plan Titrate Risperdal to 5 mg total daily dose. Continue Depakote as ordered. Continue to monitor on the inpatient unit. Continue other medications and care as ordered. Justification for Cont. Inpt. Impairment in reality construction. Medication changes in process. Discharge Planning Patient would certainly benefit from additional inpatient days for stabilization and further medication adjustment, but there has been no evidence of any suicidality, homicidality or self-care deficit so far to substantiate a petition for involuntary psychiatric hospitalization should she insist on leaving. Request HC Surrog/Guard Advoc?: No Ck Chris MD Nov 19, 2016 11:21
[2016-11-19 17:04] VITALS: BP 105/56; PULSE 82; RESP 18; TEMP 97.7; O2SAT 97
[2016-11-19] MEDS ORDERED: risperiDONE 1 MG TAB PO SCH (21:00)
[2016-11-19] MEDS: ACETAMINOPHEN 325 MG TAB PO PRN (21:08)
[2016-11-20] MEDS: ACETAMINOPHEN 325 MG TAB PO PRN (05:18)
[2016-11-20 06:08] VITALS: BP 126/70; PULSE 60; RESP 18; TEMP 97.5; O2SAT 99
[2016-11-20] MEDS: DIVALPROEX SODIUM E.R. 500 MG TAB PO SCH (08:50)
[2016-11-20] MEDS: risperiDONE 3 MG TAB PO SCH (08:50)
[2016-11-20] MEDS ORDERED: DEPA500T3 PO (09:45)
[2016-11-20] MEDS ORDERED: RISP1 PO (09:45)
[2016-11-20] MEDS ORDERED: RISP3 PO (09:45)
--- NOTE | 2016-11-20 09:46 | HHI.DS ---
Psychiatry Discharge Summary Inpatient Psychiatric care?: Yes Advance Directive: No Reason Not Provided: PSYCHOTIC Mental Health AdvanceDirective: No Health Care Proxy: No Admission Admission Date Nov 16, 2016 at 11:59 Admission Diagnosis: (1) Schizophrenia, paranoid, chronic ICD Code: F20.0 - Paranoid schizophrenia Brief History 51-year-old female brought in under a Castañeda act for reportedly taking her clothes off in a [employer] restaurant. When she was questioned by police, she became highly agitated and combative. According to the police sergeant she was making a disturbance and demonstrating aggressiveness. Patient is an uncooperative historian. She does allow that she has a history of schizophrenia and that she takes 6 mg of Risperdal per day. She also reports taking Depakote. She has thrown her food and cups in her room and blames the staff, stating staff members did this. She is feeling persecuted by the healthcare professionals attempting to care for her. She wants to ask this physician of series of questions but does not wish to answer questions. She has been noncompliant with her medicines for weeks. She does not have a positive alcohol or drug screen at this time. However she is verbally threatening to the emergency department staff. She states we are plotting to harm her. Tobacco Use In Past 30 Days: 5 or More Cigarettes/Day Alcohol Use: Never Hospital Course Patient was admitted to a locked, inpatient psychiatric unit. Appropriate precautions were in place throughout patient's hospital stay. Patient was seen and examined on the unit by psychiatry and also visited by counselor. Psychotropic medications were adjusted. Patient tolerated medications well without side effects. Patient had improvement in presenting psychiatric symptomatology during the course of her hospital stay. There was no evidence of any suicidality or homicidality on the inpatient unit. Patient's behavior improved with the benefit of psychopharmacologic treatment. On the day of discharge: Patient seen and examined with counselor and nurse. Chart reviewed. Case discussed with counselor and nurse. Per nursing staff, no behavioral issues overnight. On my examination today, the patient is in good spirits. She is requesting discharge from the inpatient psychiatric unit today. She denies any suicidal or homicidal ideation, intent or plan on direct questioning and contracts for safety. I can elicit no depressive or hypomanic/manic symptoms at this time. She denies any audiovisual hallucinations, and I can elicit no delusional material, even when I ask about the delusional material that she has previously verbalized. She is future oriented. She denies side effects from medications. Psychoeducation regarding medication regimen provided. I have recommended long-acting injectable antipsychotic but the patient declines. I have likewise offered to titrate the patient's Risperdal to reported previous outpatient dose of 3 mg twice daily on discharge, but she declines this as well. No physical complaints. Weighing the acute, chronic, and protective factors and based on the available evidence, I rolled seat trimmer to a reasonable degree of medical certainty that the patient is at low imminent risk of harm to self or others from a mental illness as defined under the Castañeda act, and her level of function is adequate for outpatient care. The patient does not meet criteria for involuntary psychiatric hospitalization. I have recommended that she remain on the unit voluntarily for further observation, but she has declined. Given that I have no basis to retain this patient involuntarily, I will order her discharge today with psychiatric follow-up as arranged by counselor. Patient is also to follow-up with primary care. She will require a Depakote level on an outpatient basis, ordered on discharge. I have counseled the patient regarding warning signs for need to return to the psychiatric emergency room as part of a general safety plan. Results Blood Pressure 126 / 70 Vital Signs Date Time Temp Pulse Resp B/P (MAP) Pulse Ox O2 Delivery O2 Flow Rate FiO2 11/20/16 06:08 97.5 60 18 126/70 (88) 99 Laboratory Tests Test 11/17/16 09:55 Basophils (%) (Auto) 2.2 % (0.0-2.0) Aspartate Amino Transf (AST/SGOT) 7 U/L (15-37) Chloride Level 108 MEQ/L (98-107) LDL Cholesterol 101 MG/DL (0-99) Laboratory Results Test 11/17/16 09:55 Cholesterol Level 182 MG/DL (120-200) HDL Cholesterol 55.4 MG/DL (40.0-60.0) Hemoglobin A1c 5.8 % (4.3-6.0) LDL Cholesterol 101 MG/DL (0-99) Triglycerides Level 126 MG/DL (42-150) Summary of Procedures None done Imaging None done Pending results at discharge: No Medications # of Antipsychotic meds at D/C: 1 Approp Antipsych med options 1 - Minimum of three failed multiple trials of monotherapy. 2 - Documented plan to taper to monotherapy due to previous use of multiple meds OR cross-taper in progress at D/C. 3 - Documentation of augmentation of Clozapine. 4 - Justification other than those listed in allowable values 1-3, document here : Discharge Discharge Date: Nov 20, 2016 Discharge Diagnosis: (1) Schizophrenia, paranoid, chronic Diagnosis: Principal (improved versus admission) ICD Code: F20.0 - Paranoid schizophrenia Mental Status Exam at Disch Patient is casually dressed. Patient is well groomed. Patient is awake and alert and oriented person in hospital at least. No evidence of delirium. No motor abnormalities appreciated. Speech is within normal limits for rate, tone , volume. Language and fund of knowledge average. Focus and concentration intact. Memory grossly intact on clinical exam. Mood is good. Affect is full and reactive. Thought process linear. No delusional material elicited. Denies audiovisual hallucinations. Denies suicidal or homicidal ideation, intent, or plan and contracts for safety. Insight and judgment seem fair to poor at best. Pt Condition on Discharge: Stable Discharge Disposition: Discharge Home Discharge Instructions Diet Instructions: As Tolerated, No Restrictions Activities you can perform: Weight Bearing as Alejandra Scheduled Appointment: as per counselor's notes New Orders: AMMONIA - 2-3 Days DEPAKENE - 2-3 Days New Medications: Divalproex ER (Depakote ER) 500 Mg Ellen 500 MG PO DAILY for Mental Health for 15 Days, #15 TAB 1 Refill Risperidone (Risperdal) 1 Mg Tab 2 MG PO HS for Mental Health for 15 Days, TAB 1 Refill Risperidone (Risperdal) 3 Mg Tab 3 MG PO DAILY for Mental Health for 15 Days, #15 TAB 1 Refill Discharge Time <= 30 minutes Discharge/Advance Care Plan Health Problems: (1) Schizophrenia, paranoid, chronic Goals to promote your health * To prevent worsening of your condition and complications * To maintain your health at the optimal level Directions to meet your goals Take your medications as prescribed Follow your dietary instruction Follow activity as directed Keep your appointments as scheduled Take your immunizations and boosters as scheduled If your symptoms worsen call your PCP, if no PCP go to Urgent Care Center or Emergency Room For 16/09 questions related to your inpatient stay or results of tests pending at discharge, please contact Dr. Ck Chris at Smoking is Dangerous to Your Health. Avoid second hand smoking Ck Chris MD Nov 20, 2016 09:46
== END 2016-11-20 12:15 | disposition home or self-care (01) | DRG 885 ==
LOC: NEPJ 13:12 → NEDA 11-16 11:59 → H270 11-16 12:28
PROVIDERS: ADMIT Psychiatry & Neurology Psychiatry; ATTEND Psychiatry & Neurology Psychiatry
DX: F20.0 Paranoid schizophrenia (principal); Z91.14 Patient's other noncompliance with medication regimen; F17.290 Nicotine dependence, other tobacco product, uncomplicated; Z59.0 Homelessness
CPT/HCPCS: 80053; 80061; 80307; 82306; 82607; 83036; 84443; 85025; 96372; J1200; J2060

== ENCOUNTER 2017-02-01 15:25 | Inpatient (IN) | payer MEDICAID ==
[~2017-02-01] VITALS: Ht 154.9 cm; Wt 53.1 kg
[~2017-02-01 15:25] MED LIST: DEPA500T3 PO; RISP1 PO; RISP3 PO
[2017-02-01 15:30] VITALS: BP 163/87; PULSE 92; RESP 22; TEMP 97.6; O2SAT 98
--- NOTE | 2017-02-01 16:14 | PD ---
HPI Chief Complaint: Psychiatric Symptoms Time Seen by Provider: 16:05 Travel History International Travel<30 days: No Contact w/Intl Traveler<30days: No Traveled to known affect area: No History of Present Illness HPI The patient was seen and examined in the presence of the nurse. This patient presents voluntarily for psychiatric evaluation. She has history of schizophrenia. She is supposed to be on medication for that but stopped taking it. She cannot give a logical reason for why she stopped taking it. She denies alcohol or drug use. Denies intentional overdose. Denies feeling suicidal. She reports that she is hearing voices. She is homeless. She arrives with luggage in [place]. Symptoms severity is moderate. No alleviating factors. Symptoms exacerbated by her psychiatric illness PFSH Past Medical History Cardiovascular Problems: Yes Chest Pain: No Ulcer: No (unknown) Past Surgical History Abdominal Surgery: No (unknown) Hysterectomy: Yes Social History Alcohol Use: No Tobacco Use: Yes Substance Use: No Allergies-Medications (Allergen,Severity, Reaction): Coded Allergies: haloperidol (Unverified Allergy, Intermediate, 10/08/16) oxycodone (Unverified Allergy, Intermediate, 10/08/16) Reported Meds & Prescriptions Reported Meds & Active Scripts Active Risperdal (Risperidone) 3 Mg Tab 3 Mg PO DAILY 15 Days Risperdal (Risperidone) 1 Mg Tab 2 Mg PO HS 15 Days Depakote ER (Divalproex Sodium) 500 Mg Ellen 500 Mg PO DAILY 15 Days Review of Systems General / Constitutional: No: Fever Eyes: No: Visual changes HENT: No: Headaches Cardiovascular: No: Chest Pain or Discomfort Respiratory: No: Shortness of Breath Gastrointestinal: No: Abdominal Pain Genitourinary: No: Dysuria Musculoskeletal: No: Pain Skin: No Rash Neurologic: No: Weakness Psychiatric: Positive: Disorder of Thought, No: Depression Endocrine: No: Polydipsia Hematologic/Lymphatic: No: Easy Bruising Physical Exam Narrative GENERAL: Disheveled well-developed patient in no apparent distress. SKIN: Focused skin assessment reveals no rash and nodules. Skin is Warm and dry. HEAD: Atraumatic. Normocephalic. EYES: Pupils equal and round. No scleral icterus. No injection or drainage. ENT: No nasal bleeding or discharge. Mucous membranes pink and moist. NECK: Trachea midline. No JVD. CARDIOVASCULAR: Regular rate and rhythm. No murmur appreciated. RESPIRATORY: No accessory muscle use. Clear to auscultation. Breath sounds equal bilaterally. GASTROINTESTINAL: Abdomen soft, non-tender, nondistended. Hepatic and splenic margins not palpable. MUSCULOSKELETAL: No obvious deformities. No clubbing. No cyanosis. No edema. NEUROLOGICAL: Awake and alert. No obvious cranial nerve deficits. Motor grossly within normal limits. Normal speech. PSYCHIATRIC: Appropriate mood and affect; insight and judgment poor . Data Data Last Documented VS Vital Signs Date Time Temp Pulse Resp B/P (MAP) Pulse Ox O2 Delivery O2 Flow Rate FiO2 02/01/17 15:30 97.6 92 22 163/87 (112) 98 Orders Orders Complete Blood Count With Diff (02/01/17 16:10) Basic Metabolic Panel (Bmp) (02/01/17 16:10) Iv Access Insert/Monitor (02/01/17 16:10) Psych Screen (02/01/17 16:10) Drug Screen, Random Urine (02/01/17 16:10) Alcohol (Ethanol) (02/01/17 16:10) Labs Laboratory Tests Test 02/01/17 16:30 02/01/17 17:30 White Blood Count 7.8 TH/MM3 Red Blood Count 4.46 MIL/MM3 Hemoglobin 14.4 GM/DL Hematocrit 43.0 % Mean Corpuscular Volume 96.2 FL Mean Corpuscular Hemoglobin 32.3 PG Mean Corpuscular Hemoglobin Concent 33.6 % Red Cell Distribution Width 13.8 % Platelet Count 327 TH/MM3 Mean Platelet Volume 7.9 FL Neutrophils (%) (Auto) 61.6 % Lymphocytes (%) (Auto) 28.6 % Monocytes (%) (Auto) 7.3 % Eosinophils (%) (Auto) 1.9 % Basophils (%) (Auto) 0.6 % Neutrophils # (Auto) 4.8 TH/MM3 Lymphocytes # (Auto) 2.2 TH/MM3 Monocytes # (Auto) 0.6 TH/MM3 Eosinophils # (Auto) 0.1 TH/MM3 Basophils # (Auto) 0.0 TH/MM3 CBC Comment DIFF FINAL Differential Comment Blood Urea Nitrogen 10 MG/DL Creatinine 0.47 MG/DL Random Glucose 57 MG/DL Calcium Level 8.9 MG/DL Sodium Level 141 MEQ/L Potassium Level 3.9 MEQ/L Chloride Level 107 MEQ/L Carbon Dioxide Level 27.0 MEQ/L Anion Gap 7 MEQ/L Estimat Glomerular Filtration Rate 140 ML/MIN Ethyl Alcohol Level LESS THAN 3 MG/DL MDM Medical Decision Making Medical Screen Exam Complete: Yes Emergency Medical Condition: Yes Medical Record Reviewed: Yes Differential Diagnosis Schizophrenia, bipolar, depression Narrative Course I have reviewed the patient's electronic medical record. Patient was hospitalized here October 2016 for schizophrenia I've ordered medical clearance workup IV placed CBC is normal Metabolic profile is normal Alcohol is negative Tox screen is running in the lab at this time but still pending, unlikely to change actual management I've ordered psychiatric screening as she presents specifically asking for that. Patient is is medically stable as can be made. Disposition will be per psychiatry after screening evaluation. Diagnosis Primary Impression: Schizophrenia, paranoid, chronic Kirk Clarke MD Feb 01, 2017 16:14
[2017-02-01 17:07] LABS: AUTOMATED NEUTROPHIL # 4.8 TH/MM3 (1.8-7.7); BASOPHIL % 0.6 % (0.0-2.0); EOSINOPHIL # 0.1 TH/MM3 (0-0.4); EOSINOPHIL % 1.9 % (0.0-4.0); HEMO FLAGS DIFF FINAL; LYMPH % 28.6 % (9.0-44.0); LYMPHOCYTE # 2.2 TH/MM3 (1.0-4.8); MEAN CELL VOLUME 96.2 FL (80.0-100.0); MEAN CORPUSCULAR HEMOGLOBIN 32.3 PG (27.0-34.0); MEAN CORPUSCULAR HGB CONC 33.6 % (32.0-36.0); MONO % 7.3 % (0.0-8.0); NEUT % 61.6 % (16.0-70.0); PLATELET COUNT 327 TH/MM3 (150-450); RED BLOOD COUNT 4.46 MIL/MM3 (4.00-5.30); RED CELL DISTRIBUTION WIDTH 13.8 % (11.6-17.2); WHITE BLOOD COUNT 7.8 TH/MM3 (4.0-11.0)
[2017-02-01 17:39] LABS: ANION GAP 7 MEQ/L (5-15); BLOOD UREA NITROGEN 10 MG/DL (7-18); CHLORIDE 107 MEQ/L (98-107); GLOMERULAR FILTRATION RATE 140 ML/MIN (>89); POTASSIUM 3.9 MEQ/L (3.5-5.1); SODIUM (NA) 141 MEQ/L (136-145)
[2017-02-01 17:41] LABS: ALCOHOL LESS THAN 3 MG/DL (0-5)
[2017-02-01 18:50] VITALS: BP 117/54; PULSE 59; RESP 16; TEMP 98.1; O2SAT 97
--- NOTE | 2017-02-01 20:59 | PD ---
History of Present Illness Chief Complaint: Psychiatric Symptoms Time Seen by Provider: 20:45 Travel History International Travel<30 Days: No Contact w/Intl Traveler<30days: No Known affected area: No Legal Status Legal Status: Voluntary History of Present Illness: History of Present Illness HPI The patient is a 52-year-old female with history of schizophrenia who presents to the ED on a voluntary status requesting a psychiatric evaluation.She reports that she is sick and that she is hearing voices. She has been noncompliant with her psychiatric medications since her discharge from psychiatric inpatient unit on November 20. Patient is currently homeless and states that she is unable to take care of herself including unable to take her medication due to her being homeless. Electronic medical record is reviewed. Most recent psychiatric hospitalization was on November 16, 2016. Patient was admitted under a Castañeda act after she took her clothes off at a [employer] and caused a disturbance. Current toxicology is negative for all substances. Patient is seen in [facility] [place]. She was sleep and and when she was awakened for evaluation she becomes easily agitated. She once again reiterated that she was hearing voices, that the voices were present all his time, that she is unable to identify what the voices tell her. When patient is asked further questions she becomes verbally abusive towards teletypewriter operator and she states "you are just trying to mess me up" and that I should just go ahead and finish and kill her. Patient also reports that she has not been able to take care of herself while out in the community. [facility] Past Medical History Cardiovascular Problems: Yes Chest Pain: No Ulcer: No (unknown) Past Surgical History Abdominal Surgery: No (unknown) Hysterectomy: Yes Psychiatric History Psychiatric History Hx Psychiatric Treatment: Most recent hospitalization at [facility] November 16 2 November 20, 2016. History of Inpatient Treatment: Yes Guns or firearms in home: No Social History Patient is homeless. Unable to obtain any other information due to her lack of cooperation. Hx Alcohol Use: No Hx Tobacco Use: Yes Hx Substance Use: No Substance Use Type: Nicotine/Cigarettes Other Substances Used: Cigars Hx of Substance Use Treatment: No Family Psychiatric History Unable to obtain Allergies-Medications (Allergen,Severity, Reaction): Coded Allergies: haloperidol (Unverified Allergy, Intermediate, 10/08/16) oxycodone (Unverified Allergy, Intermediate, 10/08/16) Reported Meds & Prescriptions Reported Meds & Active Scripts Active Risperdal (Risperidone) 3 Mg Tab 3 Mg PO DAILY 15 Days Risperdal (Risperidone) 1 Mg Tab 2 Mg PO HS 15 Days Depakote ER (Divalproex Sodium) 500 Mg Ellen 500 Mg PO DAILY 15 Days Review of Systems ROS Limitations: Uncooperative Mental Status Examination Appearance: Dirty Consciousness: Alert Orientation: x4 Motor Activity: Normal gait Speech: Unremarkable Language: Adequate Fund of Knowledge: Adequate (unable to evaluate) Attention and Concentration: Adequate Memory: Unremarkable (unable to assess) Mood: Angry Affect: Appropriate Thought Process & Associations: Intact Thought Content: Hallucinations, Delusional Hallucination Type: Auditory (does not describe content) Delusion Type: Paranoid Suicidal Ideation: No Suicidal Plan: No Suicidal Intention: No Homicidal Ideation: No Homicidal Plan: No Homicidal Intention: No Insight: Poor Judgment: Impulsive MDM Medical Decision Making Medical Record Reviewed: Yes Assessment/Plan 52 year old female with history of schizophrenia who presents to the emergency department on a voluntary basis complaining of increase in auditory hallucinations and inability to care for herself. The patient has been noncompliant with her psychiatric medications since her discharge from the inpatient unit. Patient becomes agitated with questioning and appears to be paranoid. There is no suicidal or homicidal ideation. At this time the patient meets criteria for inpatient hospitalization for further observation, stabilization and to reinitiate her psychiatric medications. During her last hospitalization her attending psychiatrist recommended long-acting and judgment injectable but patient refused such at that time. This may be an option to discuss during this hospitalization. Orders Orders Complete Blood Count With Diff (02/01/17 16:10) Basic Metabolic Panel (Bmp) (02/01/17 16:10) Iv Access Insert/Monitor (02/01/17 16:10) Psych Screen (02/01/17 16:10) Drug Screen, Random Urine (02/01/17 16:10) Alcohol (Ethanol) (02/01/17 16:10) Results Vital Signs Date Time Temp Pulse Resp B/P (MAP) Pulse Ox O2 Delivery O2 Flow Rate FiO2 02/01/17 18:50 98.1 59 16 117/54 (75) 97 Room Air 02/01/17 15:30 97.6 92 22 163/87 (112) 98 Laboratory Tests Test 02/01/17 16:30 02/01/17 17:30 White Blood Count 7.8 Red Blood Count 4.46 Hemoglobin 14.4 Hematocrit 43.0 Mean Corpuscular Volume 96.2 Mean Corpuscular Hemoglobin 32.3 Mean Corpuscular Hemoglobin Concent 33.6 Red Cell Distribution Width 13.8 Platelet Count 327 Mean Platelet Volume 7.9 Neutrophils (%) (Auto) 61.6 Lymphocytes (%) (Auto) 28.6 Monocytes (%) (Auto) 7.3 Eosinophils (%) (Auto) 1.9 Basophils (%) (Auto) 0.6 Neutrophils # (Auto) 4.8 Lymphocytes # (Auto) 2.2 Monocytes # (Auto) 0.6 Eosinophils # (Auto) 0.1 Basophils # (Auto) 0.0 CBC Comment DIFF FINAL Differential Comment Blood Urea Nitrogen 10 Creatinine 0.47 Random Glucose 57 Calcium Level 8.9 Sodium Level 141 Potassium Level 3.9 Chloride Level 107 Carbon Dioxide Level 27.0 Anion Gap 7 Estimat Glomerular Filtration Rate 140 Ethyl Alcohol Level LESS THAN 3 Urine Opiates Screen NEG Urine Barbiturates Screen NEG Urine Amphetamines Screen NEG Urine Benzodiazepines Screen NEG Urine Cocaine Screen NEG Urine Cannabinoids Screen NEG Diagnosis Primary Impression: Schizophrenia, paranoid, chronic Admitting Information Admitting Physician Requests: Admit Margy Bello [facility] Feb 01, 2017 20:59
[2017-02-01] MEDS ORDERED: ALUMINUM/MAGNESIUM/SIMETH 30 ML CUP PO PRN (21:30)
[2017-02-01] MEDS ORDERED: MAGNESIUM HYDROXIDE SUSP 30 ML CUP PO PRN (21:30)
[2017-02-01] MEDS ORDERED: ACETAMINOPHEN 325 MG TAB PO PRN (21:30)
[2017-02-01 22:15] VITALS: BP 108/57; PULSE 72; RESP 19; TEMP 97.6; O2SAT 97
[2017-02-02 06:39] VITALS: BP 88/43; PULSE 55; RESP 16; TEMP 98.1; O2SAT 96
[2017-02-02] MEDS: guaiFENesin E.R. 600 MG TAB PO SCH ×2 (08:55→21:19)
[2017-02-02 10:18] LABS: AUTOMATED NEUTROPHIL # 3.6 TH/MM3 (1.8-7.7); BASOPHIL % 0.6 % (0.0-2.0); EOSINOPHIL # 0.1 TH/MM3 (0-0.4); EOSINOPHIL % 2.2 % (0.0-4.0); HEMATOCRIT 41.1 % (35.0-46.0); HEMO FLAGS DIFF FINAL; LYMPH % 30.8 % (9.0-44.0); LYMPHOCYTE # 1.8 TH/MM3 (1.0-4.8); MEAN CELL VOLUME 96.6 FL (80.0-100.0); MEAN CORPUSCULAR HEMOGLOBIN 31.8 PG (27.0-34.0); MEAN CORPUSCULAR HGB CONC 32.9 % (32.0-36.0); MONO % 5.1 % (0.0-8.0); NEUT % 61.3 % (16.0-70.0); PLATELET COUNT 308 TH/MM3 (150-450); RED BLOOD COUNT 4.25 MIL/MM3 (4.00-5.30); RED CELL DISTRIBUTION WIDTH 13.9 % (11.6-17.2); WHITE BLOOD COUNT 5.9 TH/MM3 (4.0-11.0)
[2017-02-02 10:37] VITALS: BP 103/55; PULSE 58; RESP 16; TEMP 98.2; O2SAT 96
[2017-02-02 10:38] LABS: ANION GAP 7 MEQ/L (5-15); BICARBONATE 24.9 MEQ/L (21.0-32.0); BLOOD UREA NITROGEN 11 MG/DL (7-18); CHLORIDE 107 MEQ/L (98-107); GLOMERULAR FILTRATION RATE 124 ML/MIN (>89); POTASSIUM 4.5 MEQ/L (3.5-5.1); SODIUM (NA) 139 MEQ/L (136-145)
[2017-02-02 10:39] LABS: HDL CHOLESTEROL 50.6 MG/DL (40.0-60.0); LDL CHOLESTEROL 74 MG/DL (0-99)
[2017-02-02] MEDS ORDERED: RESP: ALBUTEROL 2.5 MG/3 ML NEB (PRN) NEB (13:00)
--- NOTE | 2017-02-02 13:15 | PD.CONS ---
[facility] Request[facility] By Dr. Hleler Reason for Consult Evaluate and manage productive cough Primary Care Physician No Primary Care Physician Diagnoses: History of Present Illness This is a 52-year-old female with a history of schizophrenia. She presents to the emergency room because of auditory hallucinations and admits to noncompliance with medical therapy. Consultation was requested by her attending to evaluate and manage complaining of productive cough. She reports of greenish to yellowish phlegm for several days associated with shortness of breath. No fever but started having chills after she was admitted. Denies lung conditions but she had bronchitis in the past. She smokes cigars. All other systems reviewed and negative Review of Systems Except as stated in HPI: all other systems reviewed are Neg Past Family Social History Allergies: Coded Allergies: haloperidol (Unverified Allergy, Intermediate, 10/08/16) oxycodone (Unverified Allergy, Intermediate, 10/08/16) Past Medical History Coronary artery disease status post SC, arthritis and low back pain Past Surgical History Appendectomy and hysterectomy Reported Medications Noncompliant Family History CVA Social History Occasional alcohol use Physical Exam Vital Signs Vital Signs Date Time Temp Pulse Resp B/P (MAP) Pulse Ox O2 Delivery O2 Flow Rate FiO2 02/02/17 10:37 98.2 58 16 103/55 (71) 96 02/02/17 06:39 98.1 55 16 88/43 (58) 96 02/01/17 22:15 97.6 72 19 108/57 (74) 97 02/01/17 22:08 02/01/17 18:50 98.1 59 16 117/54 (75) 97 Room Air 02/01/17 15:30 97.6 92 22 163/87 (112) 98 Physical Exam GENERAL: This is a well-nourished, well-developed patient, in no apparent distress. Seen with female RN SKIN: No rashes, ecchymoses or lesions. Cool and dry. HEAD: Atraumatic. Normocephalic. No temporal or scalp tenderness. EYES: Pupils equal round and reactive. Extraocular motions intact. No scleral icterus. No injection or drainage. ENT: Nose without bleeding, purulent drainage or septal hematoma. Throat without erythema, tonsillar hypertrophy or exudate. Uvula midline. Airway patent. NECK: Trachea midline. No JVD or lymphadenopathy. Supple, nontender, no meningeal signs. CARDIOVASCULAR: Regular rate and rhythm without murmurs, gallops, or rubs. RESPIRATORY: Equal Breath sounds equal bilaterally. Scattered wheezes and rhonchi GASTROINTESTINAL: Abdomen soft, non-tender, nondistended. No guarding. MUSCULOSKELETAL: Extremities without clubbing, cyanosis, or edema. No joint tenderness, effusion, or edema noted. No calf tenderness. Negative Homans sign bilaterally. NEUROLOGICAL: Awake and alert. Cranial nerves II through XII intact. Motor and sensory grossly within normal limits. Five out of 5 muscle strength in all muscle groups. Normal speech. Admits to auditory hallucinations Laboratory Laboratory Tests Test 02/01/17 16:30 02/01/17 17:30 02/02/17 08:45 White Blood Count 7.8 5.9 Red Blood Count 4.46 4.25 Hemoglobin 14.4 13.5 Hematocrit 43.0 41.1 Mean Corpuscular Volume 96.2 96.6 Mean Corpuscular Hemoglobin 32.3 31.8 Mean Corpuscular Hemoglobin Concent 33.6 32.9 Red Cell Distribution Width 13.8 13.9 Platelet Count 327 308 Mean Platelet Volume 7.9 8.1 Neutrophils (%) (Auto) 61.6 61.3 Lymphocytes (%) (Auto) 28.6 30.8 Monocytes (%) (Auto) 7.3 5.1 Eosinophils (%) (Auto) 1.9 2.2 Basophils (%) (Auto) 0.6 0.6 Neutrophils # (Auto) 4.8 3.6 Lymphocytes # (Auto) 2.2 1.8 Monocytes # (Auto) 0.6 0.3 Eosinophils # (Auto) 0.1 0.1 Basophils # (Auto) 0.0 0.0 CBC Comment DIFF FINAL DIFF FINAL Differential Comment Blood Urea Nitrogen 10 11 Creatinine 0.47 0.52 Random Glucose 57 102 Calcium Level 8.9 8.9 Sodium Level 141 139 Potassium Level 3.9 4.5 Chloride Level 107 107 Carbon Dioxide Level 27.0 24.9 Anion Gap 7 7 Estimat Glomerular Filtration Rate 140 124 Ethyl Alcohol Level LESS THAN 3 Urine Opiates Screen NEG Urine Barbiturates Screen NEG Urine Amphetamines Screen NEG Urine Benzodiazepines Screen NEG Urine Cocaine Screen NEG Urine Cannabinoids Screen NEG Triglycerides Level 31 Cholesterol Level 131 LDL Cholesterol 74 HDL Cholesterol 50.6 Cholesterol/HDL Ratio 2.58 Valproic Acid (Depakene) Level LESS THAN 3 Result Diagram: 02/02/17 0845 02/02/1745 Assessment and Plan Assessment and Plan This is a 52-year-old female with a history of schizophrenia. She presents to the emergency room because of auditory hallucinations and admits to noncompliance with medical therapy. Consultation was requested by her attending to evaluate and manage complaining of productive cough. She reports of greenish to yellowish phlegm for several days associated with shortness of breath. No fever but started having chills after she was admitted. Denies lung conditions but she had bronchitis in the past. She smokes cigars. Acute bronchitis need to rule out pneumonia. Obtain chest x-ray, sputum culture , pneumococcal and Legionella urinary antigen. Start Z-Amilcar, prednisone, nebulizations and antitussives. Tobacco cessa Transient hypotension. Asymptomatic. Monitor Coronary artery disease status post SC. Denies chest pain. Aspirin Schizophrenia. Noncompliant with therapy. Further management per psychiatry. Obtain urinalysis Low risk for DVT Discussed Condition With Patient Clarence Reza MD Feb 02, 2017 13:15
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
--- NOTE | 2017-02-02 13:46 | RADRPT ---
EXAM DATE/TIME: 02/02/2017 13:23 [place] COMPARISON: No previous studies available for comparison. INDICATIONS : Cough. MEDICAL HISTORY : Cardiovascular disease. Schizophrenic SURGICAL HISTORY : Hysterectomy. ENCOUNTER: Subsequent ACUITY: 1 day PAIN SCORE: Non-responsive. LOCATION: Bilateral chest FINDINGS: A single view of the chest demonstrates the lungs to be symmetrically aerated without evidence of mas s, infiltrate or effusion. The cardiomediastinal contours are unremarkable. Osseous structures are intact. CONCLUSION: No evidence of acute cardiopulmonary disease. Guzman Gonzalez MD on February 02, 2017 at 13:45 Board Certified Radiologist. This report was verified electronically.
[2017-02-02] MEDS: DIVALPROEX DR 500 MG TABEC PO SCH (13:53)
[2017-02-02] MEDS: risperiDONE 1 MG TAB PO SCH ×2 (13:53→21:20)
[2017-02-02] MEDS ORDERED: AZITHROMYCIN 250 MG TAB PO ONE (14:00)
[2017-02-02] MEDS: predniSONE 20 MG TAB PO SCH (15:46)
[2017-02-02] MEDS: RESP: ALBUTEROL 2.5 MG/IPRATROPIUM 0.5 MG NEB (SCH) INH ×2 (17:15→21:40)
[2017-02-02 18:16] VITALS: BP 102/61; PULSE 71; RESP 17; TEMP 97.8; O2SAT 97
[2017-02-03 05:35] VITALS: BP 97/51; PULSE 69; RESP 16; TEMP 97.9; O2SAT 96
[2017-02-03] MEDS: predniSONE 20 MG TAB PO SCH (09:40)
[2017-02-03] MEDS: DIVALPROEX DR 500 MG TABEC PO SCH (09:40)
[2017-02-03] MEDS: risperiDONE 1 MG TAB PO SCH (09:40)
[2017-02-03] MEDS: RESP: ALBUTEROL 2.5 MG/IPRATROPIUM 0.5 MG NEB (SCH) INH ×4 (09:40→20:00)
[2017-02-03] MEDS: AZITHROMYCIN 250 MG TAB PO SCH (09:40)
[2017-02-03] MEDS: guaiFENesin E.R. 600 MG TAB PO SCH ×2 (09:40→22:32)
[2017-02-03] MEDS: ASPIRIN EC 81 MG TABEC PO SCH (09:41)
[2017-02-03 09:59] LABS: BLOOD, URINE NEG (NEG); COMMENT (UR) CULT NOT INDICATED; CULTURE IF INDICATED CULT NOT INDICATED; GLUCOSE,URINE NEG (NEG); KETONE, URINE NEG (NEG); NITRITE,URINE NEG (NEG); PH, URINE 6.5 (5.0-8.5); SQUAMOUS EPITHELIAL CELL URINE 1 /hpf (0-5); URINE COLOR LIGHT-YELLOW (YELLW/STRAW)
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
--- NOTE | 2017-02-03 15:12 | HHI.PR ---
Subjective Remarks Follow-up cough. Patient states that her cough is better. She denies shortness of breath. States that she is producing much less phlegm than yesterday. No other physical complaints at this time. Objective Vitals Vital Signs Date Time Temp Pulse Resp B/P (MAP) Pulse Ox O2 Delivery O2 Flow Rate FiO2 02/03/17 05:35 97.9 69 16 97/51 (66) 96 02/02/17 18:16 97.8 71 17 102/61 (75) 97 Result Diagram: 02/02/17 0845 02/02/17 0845 Imaging Last Impressions Chest X-Ray 02/02/17 0000 Signed Impressions: Service Date/Time: Thursday, February 02, 2017 13:23 - CONCLUSION: No evidence of acute cardiopulmonary disease. Guzman Gonzalez MD Objective Remarks General: No acute distress. Heart: Regular rate and rhythm. No murmur. Lungs: Clear to auscultation bilaterally. No wheezes, rales, or rhonchi. Breathing is nonlabored. Abdomen: Soft, nontender, nondistended. Extremities: No lower extremity edema. Psych: Alert and oriented. Procedures None Urinary Catheter: No Vascular Central Line Catheter: No A/P Assessment and Plan 1. Acute bronchitis: Chest x-ray is negative. Symptoms are improving. Nebulizer treatments as needed. Continue steroids, Z-Amilcar (stop date for both is 02/07/17). 2. Coronary artery disease: Asymptomatic. Continue aspirin. 3. Schizophrenia: Noncompliant with therapy. Management per psychiatry. [facility] will sign off. Reconsult if needed. Kirk Mcginnis MD Feb 03, 2017 15:12
[2017-02-03 16:25] LABS: HEMOGLOBIN A1a 1.1 %; HEMOGLOBIN A1b 0.9 %; HEMOGLOBIN Ao 83.9 %; HEMOGLOBIN F 1.1 %; HEMOGLOBIN LA1C 2.4 %
[2017-02-03 16:50] VITALS: BP 105/72; PULSE 54; RESP 18; TEMP 98.4; O2SAT 97
[2017-02-03] MEDS: BENZONATATE 100 MG CAP PO PRN (22:32)
[2017-02-03] MEDS: risperiDONE 3 MG TAB PO SCH (22:32)
[2017-02-04 06:34] VITALS: BP 125/60; PULSE 54; RESP 17; TEMP 98.1; O2SAT 98
[2017-02-04] MEDS: RESP: ALBUTEROL 2.5 MG/IPRATROPIUM 0.5 MG NEB (SCH) INH ×4 (08:00→21:15)
[2017-02-04] MEDS: DIVALPROEX SODIUM E.R. 500 MG TAB PO SCH (08:38)
[2017-02-04] MEDS: AZITHROMYCIN 250 MG TAB PO SCH (08:38)
[2017-02-04] MEDS: risperiDONE 3 MG TAB PO SCH ×2 (08:38→21:43)
[2017-02-04] MEDS: ASPIRIN EC 81 MG TABEC PO SCH (08:38)
[2017-02-04] MEDS: guaiFENesin E.R. 600 MG TAB PO SCH ×2 (08:38→21:43)
--- NOTE | 2017-02-04 09:25 | PD.TTN ---
Patient Problems 1. Discharge planning 2. Medication compliance 3. Knowledge deficit 4. Lack of coping skills Progress Toward Goals Provider Present: Dr. Kandy Chris Provider Input: Patient had medications titrated and does continue to have outburst on the unit. Patient refused long acting injection upon this admission. Nurse(s) Input: Patient was moved to a private room due to outburst. Patient has been observed to be more seclusive to room. Patient is redirectable and compliant with medications. Patient is attending to basic ADLs and is eating meals. Psychiatric Counselors Present: [facility] Input: Patient continues to be internally stimulated, evidence by patient hearing voices saying she is a "whore". Patient is redirectable, but has been observed to have outburst on the unit. Group Spec/RT/OT/PECK Present: ELSIE Collins Group Spec/RT/OT/PECK Input: Patient does not attend groups, remains isolative on the unit. Li Gillis [facility] Feb 04, 2017 09:25
--- NOTE | 2017-02-04 11:32 | HHI.PYPN ---
Subjective Chief Complaint: Psychosis Remarks Patient seen and examined with nurse. Chart reviewed. Case discussed in treatment team. Per nursing staff, the patient has been compliant with medications and has had fewer episodes of responding to internal stimuli. On my examination today, the patient reports that the voices have decreased in intensity, and there are also slower and intermittent in frequency. They remain deprecatory. Some ongoing paranoia. She is considerably calmer overall. No SI or HI. Denies side effects from medications. No physical complaints. We revisited possibility of long-acting injectable, and patient reports that she has tolerated Risperdal Consta well in the past but has struggled with administration of this medication because of the size of the needle. She says that she cannot tolerate Invega Sustenna or haloperidol in any form. No physical complaints. Breathing easily. Review of Systems ROS Limitations: Psychotic Except as stated in HPI: all other systems reviewed are Neg Mental Status Examination Appearance: Disheveled (grooming improving) Consciousness: Alert Orientation: x4 Motor Activity: Normal gait, Other (no motoric abnormalities appreciated) Speech: Unremarkable Language: Adequate Fund of Knowledge: Adequate Attention and Concentration: Adequate Memory: Unremarkable Mood: Other (calmer) Affect: Blunt (more reactive) Thought Process & Associations: Linear Thought Content: Hallucinations, Delusional Hallucination Type: Auditory (decreasing as noted above) Delusion Type: Paranoid Suicidal Ideation: No Suicidal Plan: No Suicidal Intention: No Homicidal Ideation: No Homicidal Plan: No Homicidal Intention: No Insight: Fair Judgment: Impulsive Results Labs Date/Time Source Procedure Growth Status 02/02/17 14:50 Nasal Washing Influenza Types A,B Antigen (TONYA) - Final NEGATIVE FOR FLU A AND B ANTIGEN.... Complete 02/02/17 13:15 Urine Random Urine Legionella Antigen - Final PRESUMPTIVE NEGATIVE FOR LEGIONELLA P... Complete 02/02/17 13:15 Urine Random Urine Streptococcus pneumoniae Antigen (M - Final PRESUMPTIVE NEGATIVE FOR STREPTOCOCCU... Complete Labs reviewed. Vitals/IOs Vital Signs Date Time Temp Pulse Resp B/P (MAP) Pulse Ox O2 Delivery O2 Flow Rate FiO2 02/04/17 06:34 98.1 54 17 125/60 (81) 98 02/01/17 18:50 Room Air Intake and Output 02/04/17 02/04/17 02/05/17 08:00 16:00 00:00 Intake Total 480 ml Balance 480 ml Assessment & Plan Problem List: (1) Schizophrenia, paranoid, chronic ICD Codes: F20.0 - Paranoid schizophrenia Assessment & Plan Patient seems to be benefiting from increased dose of Risperdal, and I will continue this agent for now. I did check with the pharmacy and the Risperdal Consta injection comes with a standard 2 inch needle but there is also unavailable one-inch needle that we may use as an alternative. To consider long -acting injectable Risperdal. Continue Depakote as ordered for now; Depakote and ammonia level ordered for tomorrow morning. Continue other medications and care as ordered. Justification for Cont. Inpt. Risk for decompensation in less restrictive environment. Med changes anticipated. Discharge Planning Placement. Case discussed with counselor. Patient is agreeable to placement. Request HC Surrog/Guard Advoc?: No Ck Chris MD Feb 04, 2017 11:32
--- NOTE | 2017-02-04 14:13 | EKG ---
Date Performed: 02/03/2017 Time Performed: 13:34:32 PTAGE: 52 years EKG: Sinus rhythm DIFFUSE MARKED T-WAVE CHANGE, SUGGESTIVE OF ISCHEMIA OR CENTRIAL NEUROLOGICAL EVENT ABNORMAL ECG Com pared to PREVIOUS TRACING , changes are slightly more prominent. Clinical correlation is needed. P REVEILEEN TRACIN08/31/2016 12.31 DOCTOR: Epifanio Heaton Interpretating Date/Time 02/04/2017 14:12:24
[2017-02-04] MEDS: predniSONE 20 MG TAB PO SCH (16:47)
[2017-02-04 18:00] VITALS: BP 133/60; PULSE 67; RESP 17; TEMP 97.8; O2SAT 97
[2017-02-04] MEDS: BENZONATATE 100 MG CAP PO PRN (21:43)
[2017-02-05 06:01] VITALS: BP 92/55; PULSE 59; RESP 16; TEMP 97.7
[2017-02-05] MEDS: RESP: ALBUTEROL 2.5 MG/IPRATROPIUM 0.5 MG NEB (SCH) INH ×3 (08:00→11:32)
[2017-02-05] MEDS: ASPIRIN EC 81 MG TABEC PO SCH (08:26)
[2017-02-05] MEDS: risperiDONE 3 MG TAB PO SCH (08:26)
[2017-02-05] MEDS: AZITHROMYCIN 250 MG TAB PO SCH (08:26)
[2017-02-05] MEDS: guaiFENesin E.R. 600 MG TAB PO SCH (08:26)
[2017-02-05] MEDS: DIVALPROEX SODIUM E.R. 500 MG TAB PO SCH (08:26)
[2017-02-05] MEDS: predniSONE 20 MG TAB PO SCH (08:27)
[2017-02-05] MEDS ORDERED: guaiFENesin ER PO (08:35)
[2017-02-05] MEDS ORDERED: ALBUAER3 INH (08:35)
[2017-02-05] MEDS ORDERED: RISP25P IM (08:35)
[2017-02-05] MEDS ORDERED: PRED20 PO (08:35)
[2017-02-05] MEDS ORDERED: ECASA81 PO (08:35)
[2017-02-05] MEDS ORDERED: DIVA250ER PO (08:35)
[2017-02-05] MEDS ORDERED: AZIT250T3 PO (08:35)
[2017-02-05] MEDS ORDERED: RISP3 PO (08:35)
--- NOTE | 2017-02-05 08:35 | HHI.DS ---
Psychiatry Discharge Summary Inpatient Psychiatric care?: Yes Advance Directive: No Reason Not Provided: declined Mental Health AdvanceDirective: No Health Care Proxy: No Admission Admission Date Feb 01, 2017 at 21:32 Admission Diagnosis: (1) Schizophrenia, paranoid, chronic ICD Code: F20.0 - Paranoid schizophrenia Brief History Patient is a 52-year-old woman, , homeless, unemployed on SSI , with past psychiatric history of schizophrenia, multiple psychiatric hospitalizations (his thousand and 8) recently discharged from [facility] 11/20/16 , no prior suicide attempts or self-injurious behavior, who was brought in voluntarily for psychiatric evaluation stating that she had stopped her medications experiencing auditory hallucinations. As per discharge patient during her last hospitalization was brought in on a Castañeda act after taking off her clothes attends the causing disturbance which she was discharged on risperidone, Depakote. As per the patient was noted to be very paranoid easily agitated endorsing auditory hallucinations. Patient was transferred to the inpatient psychiatry for evaluation and management. Patient was found lying in hospital bed noted to be coughing productively but cooperative interview. Patient states that she had gotten sick and came to the hospital for help. Patient states that the place of the problem that people were "" she is referring to voices that talk to her. She states that the voices tell her that she is going to , she is going to trying, to replace her SSI card, and other nonsensical statements. Patient states that she has a court date next Friday for trespassing charge. Currently she states feeling "grouchy" continues to endorse auditory hallucinations, denies SI or HI, reports having paranoid delusions stating that the forger helper are police are after her. She noticed also to go off and attention stating that there were people putting body parts in her "positive testicles" but was able to be redirectable during interview. Tobacco Use In Past 30 Days: 5 or More Cigarettes/Day Alcohol Use: Monthly or Less Hospital Course Patient was admitted to a locked, inpatient psychiatric unit. A general medical consultation was obtained. Appropriate precautions were in place throughout patient's hospital stay. Patient was seen and examined on the unit by psychiatry and also visited by counselor. Psychotropic medications were adjusted. Patient accepted long-acting injectable Risperdal Consta without incident. Psychoeducation was provided regarding patient's discharge medication regimen including the need for temporary supplementation with oral Risperdal and the need for follow-up Consta injections. Patient had improvement in presenting psychiatric symptomatology during the course of her hospital stay. Behavior improved with the benefit of psychopharmacologic treatment. There was no evidence of any suicidality or homicidality on the inpatient unit. Counselor has arranged for placement in [facility], and patient is agreeable to going to that facility today. On the day of discharge: Patient seen and examined in view of staff. Chart reviewed. Case discussed with counselor and nurse. No behavioral issues overnight. On my examination today, patient is requesting discharge from the inpatient unit today. She denies any suicidal or homicidal ideation, intent or plan on direct questioning and contracts for safety. Mood is good and I can elicit no depressive or hypomanic/manic symptoms. She denies audiovisual hallucinations. She does have some mild residual paranoia, but this has decreased with the benefit of psychopharmacologic treatment. No other delusional material. She denies side effects from medications. No physical complaints. Suicide and violence risk assessment on day of discharge both suggest lower imminent risk, and her level of function is adequate for outpatient care. The patient does not meet criteria for involuntary psychiatric hospitalization at this time and is requesting discharge from the inpatient psychiatric unit today. She will be discharged to [facility] with psychiatric follow-up as arranged by counselor. Patient is also to follow-up with primary care. I counseled the patient to abstain from any substances of abuse. I have counseled the patient regarding warning signs for need to return to the psychiatric emergency room as part of a general safety plan. Patient's Depakote level was subtherapeutic this morning, and so I have titrated this agent and placed orders for follow-up Depakote and ammonia level on an outpatient basis. Results Blood Pressure 92 / 55 Vital Signs Date Time Temp Pulse Resp B/P (MAP) Pulse Ox O2 Delivery O2 Flow Rate FiO2 02/05/17 06:01 97.7 59 16 92/55 (67) 02/04/17 18:00 97 02/01/17 18:50 Room Air Laboratory Tests Test 02/02/17 08:45 02/02/17 13:51 02/05/17 07:33 Triglycerides Level 31 MG/DL (42-150) Valproic Acid (Depakene) Level LESS THAN 3 MCG/ML 25 MCG/ML (50-100) Laboratory Results Test 02/02/17 08:45 02/05/17 07:33 Cholesterol Level 131 MG/DL (120-200) HDL Cholesterol 50.6 MG/DL (40.0-60.0) Hemoglobin A1c 5.9 % (4.3-6.0) LDL Cholesterol 74 MG/DL (0-99) Triglycerides Level 31 MG/DL (42-150) Valproic Acid (Depakene) Level 25 MCG/ML (50-100) Summary of Major Lab Results Depakote level subtherapeutic. Ammonia level not elevated. Summary of Procedures None done Imaging Last Impressions Chest X-Ray 02/02/17 0000 Signed Impressions: Service Date/Time: Thursday, February 02, 2017 13:23 - CONCLUSION: No evidence of acute cardiopulmonary disease. Guzman Gonzalez MD Pending results at discharge: No Medications # of Antipsychotic meds at D/C: 1 Approp Antipsych med options 1 - Minimum of three failed multiple trials of monotherapy. 2 - Documented plan to taper to monotherapy due to previous use of multiple meds OR cross-taper in progress at D/C. 3 - Documentation of augmentation of Clozapine. 4 - Justification other than those listed in allowable values 1-3, document here : Discharge Discharge Date: Feb 05, 2017 Discharge Diagnosis: (1) Schizophrenia, paranoid, chronic Diagnosis: Principal (improved versus admission) ICD Code: F20.0 - Paranoid schizophrenia Pt Condition on Discharge: Stable Discharge Disposition: Discharge Home Discharge Instructions Diet Instructions: As Tolerated, No Restrictions Activities you can perform: Weight Bearing as Alejandra Scheduled Appointment: as per counselor's notes New Orders: AMMONIA - 1 Week DEPAKENE - 1 Week New Medications: Albuterol 8.5 GM Inh (Proair Hfa 8.5 GM Inh) 90 Mcg/Act Aer 2 PUFF INH Q6H PRN for SHORTNESS OF BREATH, #1 INHALER 0 Refills 108 mcg/actuation Divalproex ER (Depakote ER) 250 Mg Ellen 750 MG PO DAILY for Mental Health for 15 Days, #45 TAB 1 Refill Risperidone Inj (Risperdal Consta Inj) 25 Mg/2 Ml Inj 25 MG IM Q14D for Mental Health, #2 VIAL 0 Refills This dose of Risperdal Consta is due on 02/19/2017. Aspirin DR (Aspirin DR) 81 Mg Tabdr 81 MG PO DAILY for Health for 15 Days, #15 TAB 1 Refill Azithromycin (Azithromycin) 250 Mg Tab 250 MG PO DAILY for Antibiotic for 2 Days, #2 TAB 0 Refills Prednisone (Prednisone) 20 Mg Tab 40 MG PO DAILY for Health for 2 Days, #4 TAB 0 Refills Risperidone (Risperdal) 3 Mg Tab 3 MG PO Q12HR for Mental Health for 21 Days, TAB 0 Refills Take oral Risperdal for 3 weeks as prescribed then stop. Be sure to get your next Risperdal Consta injection as ordered. [guaiFENesin ER] () 600 MG TABCR 600 MG PO BID for Health for 15 Days, 1 Refill Discontinued Medications: Divalproex ER (Depakote ER) 500 Mg Ellen 500 MG PO DAILY for Mental Health for 15 Days, #15 TAB 1 Refill Risperidone (Risperdal) 1 Mg Tab 2 MG PO HS for Mental Health for 15 Days, TAB 1 Refill Risperidone (Risperdal) 3 Mg Tab 3 MG PO DAILY for Mental Health for 15 Days, #15 TAB 1 Refill Discharge Time > 30 minutes Mental Status Examination Appearance: Appropriate Consciousness: Alert Orientation: x4 Motor Activity: Normal gait, Other (no hand tremor, no dystonia, no dyskinesia , no other motor abnormalities noted.) Speech: Unremarkable Language: Adequate Fund of Knowledge: Adequate Attention and Concentration: Adequate Memory: Unremarkable Mood: Appropriate Affect: Appropriate Thought Process & Associations: Intact, Linear Thought Content: Appropriate (generally appropriate with some mild residual paranoia) Hallucination Type: None (denies AVH) Delusion Type: Paranoid (mild, improved versus admission) Suicidal Ideation: No Suicidal Plan: No Suicidal Intention: No Homicidal Ideation: No Homicidal Plan: No Homicidal Intention: No Insight: Fair Judgment: Adequate (fair) Discharge/Advance Care Plan Health Problems: (1) Schizophrenia, paranoid, chronic Goals to promote your health * To prevent worsening of your condition and complications * To maintain your health at the optimal level Directions to meet your goals Take your medications as prescribed Follow your dietary instruction Follow activity as directed Keep your appointments as scheduled Take your immunizations and boosters as scheduled If your symptoms worsen call your PCP, if no PCP go to Urgent Care Center or Emergency Room For 16/09 questions related to your inpatient stay or results of tests pending at discharge, please contact Dr. Ck Chris at Smoking is Dangerous to Your Health. Avoid second hand smoking Ck Chris MD Feb 05, 2017 08:35
[2017-02-05] MEDS ORDERED: risperiDONE EXT REL INJ 25 MG/2 ML VIAL IM ONE (10:00)
== END 2017-02-05 13:24 | disposition home or self-care (01) | DRG 885 ==
LOC: NEPC 15:25 → NEDA 21:32 → H260 22:16
PROVIDERS: ADMIT Psychiatry & Neurology Psychiatry; ATTEND Psychiatry & Neurology Psychiatry
DX: F20.0 Paranoid schizophrenia (principal); I25.2 Old myocardial infarction; I25.10 Atherosclerotic heart disease of native coronary artery without angina pectoris; M54.5 Low back pain; J20.9 Acute bronchitis, unspecified; R03.1 Nonspecific low blood-pressure reading; M19.90 Unspecified osteoarthritis, unspecified site; F17.290 Nicotine dependence, other tobacco product, uncomplicated; Z59.0 Homelessness; Z88.5 Allergy status to narcotic agent; Z91.14 Patient's other noncompliance with medication regimen; Z91.19 Patient's noncompliance with other medical treatment and regimen
CPT/HCPCS: 71010; 80048; 80061; 80164; 80307; 81001; 82140; 83036; 85025; 87070; 87205; 87449; 87804; 93005; 94640; 94664; 99285; J2794; J7512